=== PATIENT | male | born 1970 | race Two or more races ===

== ENCOUNTER 2025-05-06 08:07 | Emergency (ER) | payer OTHER ==
[~2025-05-06] VITALS: Ht 180.3 cm; Wt 108.9 kg
[2025-05-06] MEDS ORDERED: LOSARTAN-HCTZ1 EAC1 PO (09:02)
[2025-05-06] MEDS ORDERED: DEXAMETHASONE SODIUM PHOSPHATE 4 MG/ML VIAL IM ONE (09:30)
[2025-05-06] MEDS ORDERED: TRAMADOL HCL 50 MG TABLET PO ONE (09:30)
[2025-05-06] MEDS ORDERED: KETOROLAC TROMETHAMINE 30 MG VIAL IM ONE (09:30)
[2025-05-06] MEDS ORDERED: ORPHENADRINE CITRATE 30 MG/ML AMPUL IM ONE (09:30)
[2025-05-06] MEDS ORDERED: KETOROLAC TROMETHAMINE 30 MG VIAL ONE (09:35)
[2025-05-06] MEDS ORDERED: ORPHENADRINE CITRATE 30 MG/ML AMPUL ONE (09:36)
[2025-05-06] MEDS ORDERED: DEXAMETHASONE SODIUM PHOSPHATE 4 MG/ML VIAL ONE (09:36)
== END 2025-05-06 10:50 | disposition home or self-care (01) ==
LOC: ER 08:08
DX: M25.559 Pain in unspecified hip (principal); M54.9 Dorsalgia, unspecified; M54.50 Low back pain, unspecified; I10 Essential (primary) hypertension